=== PATIENT | male | born 1955 | race Caucasian/White ===

== ENCOUNTER 2016-12-13 13:38 | Inpatient (IN) | payer MEDICARE ==
[2016-12-13] VITALS (15 sets, daily range): BP systolic 89–154; BP diastolic 51–88; BMI 44.8
[~2016-12-13] VITALS: Ht 182.9 cm; Wt 149.7 kg
[~2016-12-13 13:38] MED LIST: BUMEX 1 MG TAB1 MG PO; BUTALB-APAP-CA1 EACH PO; CARAFATE1 G/10 ML PO; CELEXA20 MG PO; CRESTOR20 MG PO; HYDROCODONE-APA1 TAB PO; KLOR-CON M2020 MEQ PO; LANTUS INSULIN10 ML SC; LEVAQUIN500 MG PO; LYRICA150 MG PO; METOLAZONE2.5 MG PO; MORPHINE SULFAT30 MG PO; NEXIUM40 MG PO; NOVOLIN 70/30 110 ML SC; PHENYTEK200 MG PO; RESTORIL15 MG PO; ROBAXIN500 MG PO; STERAPRED DS 1210 MG PO; TERBUTALINE SULF5 MG PO; TRILEPTAL600 MG PO; ZESTRIL40 MG PO; ZOLOFT100 MG PO; [UNRECOGNIZED DRUG - OTHER] SQ
[2016-12-13 14:47] LABS: BASOPHILS 0.2 % (0.0-2.0); HEMATOCRIT 44.7 % (42.0-54.0); HEMOGLOBIN 14.9 g/dL (13.5-17.5); IMMATURE GRANULOCYTES 0.6 % (0-5); LYMPHOCYTES 12.5 % (15-50); MCH 31.5 pg (26.0-34.0); MCHC 33.3 g/dL (31.0-37.0); MCV 94.5 fL (80.0-100.0); MEAN PLATELET VOLUME 9.7 fL (7.4-10.4); MONOCYTES 4.8 % (2-11); NEUTROPHILS 80.9 % (40-80); RBC 4.73 10x6/uL (4.20-6.10); RDW 13.2 % (11.5-14.5); WBC 12.2 10x3/uL (4.8-10.8)
[2016-12-13 14:49] LABS: PLATELET COUNT 346 10x3/uL (130-400)
[2016-12-13 14:55] LABS: APTT 28.2 SECONDS (22.8-39.4); INR 1.06 (0.85-1.17); PROTIME 13.6 SECONDS (11.6-15.0)
[2016-12-13 15:00] LABS: ALKALINE PHOSPHATASE 153 U/L (46-116); ALT (SGPT) 26 U/L (10-68); BILIRUBIN - TOTAL 0.35 mg/dL (0.2-1.3); CALC OSMOLALITY 274 mosm/kg (275-300); CALCIUM 9.3 mg/dL (8.5-10.1); CARBON DIOXIDE 25.6 mmol/L (21.0-32.0); CHLORIDE - SERUM 97 mmol/L (98-107); CREATININE - SERUM 0.7 mg/dL (0.6-1.3); GLUCOSE 260 mg/dL (74-106); POTASSIUM - SERUM 4.5 mmol/L (3.5-5.1); PROTEIN - SERUM 7.8 g/dL (6.4-8.2); SODIUM 132 mmol/L (136-145); UREA NITROGEN 15 mg/dL (7-18); eGFR NON AFRICAN AMERICAN > 90 mL/min (90-120)
[2016-12-13 15:11] LABS: CKMB 3.5 U/L (0.0-3.6); CREATINE KINASE 263 UL (21-232); PRO BNP 59 pg/mL (0-125); TROPONIN-I < 0.017 ng/mL (0.000-0.060)
--- NOTE | 2016-12-13 15:12 | NUR ---
RECIEVED REPORT ON PT FROM MARITZA IN ER. WAITING TO RECIEVE PT TO UNIT.
--- NOTE | 2016-12-13 15:38 | NUR ---
PT ARRIVED TO UNIT AT 1525 VIA STRETCHER FROM ER ACCOMPANIED BY HOSPITAL STAFF. PT ABLE TO TRANSFER FROM STRETCHER TO BED BY STAND BY ASSIST WALKING. NO ACUTE DISTRESS NOTED. PT STABLE CONDITION. ALERT AND ORIENTED. WILL CONTINUE TO OBSERVE.
--- NOTE | 2016-12-13 16:16 | NUR ---
FAMILY AT BEDSIDE. UPDATE GIVEN. NO ACUTE DISTRESS NOTED. WILL CONTINUE PLAN OF CARE.
--- NOTE | 2016-12-13 18:07 | NUR ---
WATCHING TV AT THIS TIME. DENIES ANY NEEDS. NO ACUTE DISTRESS NOTED. WILL CONTINUE PLAN OF CARE.
--- NOTE | 2016-12-13 18:31 | NUR ---
SMALL INCONTINENT BOWEL MOVEMENT NOTED AT THIS TIME. HARJINDER CARE GIVEN VIA MAX ASSIST. PT TURNS SELF INDEPENDENTLY. NO ACUTE DISTRESS NOTED. WILL CONTINUE PLAN OF CARE.
--- NOTE | 2016-12-13 19:00 | NUR ---
REPORT RECIEVED, INITIAL ASSESSMENT COMPLETE, PLEASE SEE FLOW SHEETS FOR DETAILS. BED LOW AND LOCKED, CALL LIGHT IN REACH. VSS, WILL CONTINUE POC.
--- NOTE | 2016-12-13 21:00 | NUR ---
PT COMPLAINING OF SEVERE BACK PAIN, 04/23, WILL CALL DR WASSERMAN.
--- NOTE | 2016-12-13 21:15 | NUR ---
SPOKE WITH DR WASSERMAN, RECIEVED NEW ORDERS. WILL CONTINUE POC.
--- NOTE | 2016-12-13 23:00 | NUR ---
REASSESSMENT COMPLETE, PLEASE SEE FLOW SHEETS FOR DETAILS. BED LOW AND LOCKED, CALL LIGHT IN REACH. TONGUE SWELLING DECREASED. VSS, WILL CONTINUE POC.
[2016-12-14] VITALS (23 sets, daily range): BP systolic 89–184; BP diastolic 51–97
--- NOTE | 2016-12-14 01:00 | NUR ---
PT SLEEPING, NO S&S OF ACUTE DISTRESS NOTED. BED LOW AND LOCKED, CALL LIGHT IN REACH. VSS, WILL CONTINUE POC.
--- NOTE | 2016-12-14 02:57 | NUR ---
REASSESSMENT COMPLETE, PLEASE SEE FLOW SHEETS FOR DETAILS. GAVE ORDERED MORPHINE 4MG FOR PAIN WITH 4MG ZOFRAN. STATES NOSE IS DRY, ADDED HUMIDIFICATION TO O2 THERAPY. VSS, BED LOW AND LOCKED, CALL LIGHT IN REACH. WILL CONTINUE POC.
--- NOTE | 2016-12-14 05:00 | NUR ---
PT SLEEPING, DENIES NEEDS ATT, BED LOW AND LOCKED, CALL LIGHT IN REACH. NO S&S OF ACUTE DISTRESS NOTED. WILL CONTINUE POC.
[2016-12-14 05:30] LABS: BASOPHILS 0.1 % (0.0-2.0); EOSINOPHILS 0 % (0-7); HEMATOCRIT 42.2 % (42.0-54.0); HEMOGLOBIN 14.2 g/dL (13.5-17.5); IMMATURE GRANULOCYTES 0.4 % (0-5); LYMPHOCYTES 9.7 % (15-50); MCH 31.3 pg (26.0-34.0); MCHC 33.6 g/dL (31.0-37.0); MCV 93.2 fL (80.0-100.0); MEAN PLATELET VOLUME 9.6 fL (7.4-10.4); MONOCYTES 4.5 % (2-11); NEUTROPHILS 85.3 % (40-80); PLATELET COUNT 340 10x3/uL (130-400); RBC 4.53 10x6/uL (4.20-6.10); RDW 13.1 % (11.5-14.5); WBC 14.8 10x3/uL (4.8-10.8)
[2016-12-14 05:41] LABS: ERYTHROCYTE SEDIMENTATION RATE 36 mm/hr (0-20)
[2016-12-14 05:46] LABS: ALBUMIN 2.9 g/dL (3.4-5.0); ALKALINE PHOSPHATASE 151 U/L (46-116); ALT (SGPT) 24 U/L (10-68); BILIRUBIN - TOTAL 0.18 mg/dL (0.2-1.3); CALCIUM 8.7 mg/dL (8.5-10.1); CARBON DIOXIDE 24.9 mmol/L (21.0-32.0); CREATININE - SERUM 0.6 mg/dL (0.6-1.3); GLUCOSE 287 mg/dL (74-106); MAGNESIUM - SERUM 1.9 mg/dL (1.8-2.4); PHOSPHOROUS 3.2 mg/dL (2.5-4.9); PROTEIN - SERUM 6.9 g/dL (6.4-8.2); eGFR NON AFRICAN AMERICAN > 90 mL/min (90-120)
[2016-12-14 05:47] LABS: UREA NITROGEN 20 mg/dL (7-18)
[2016-12-14 05:56] LABS: CALC OSMOLALITY 278 mosm/kg (275-300); CHLORIDE - SERUM 98 mmol/L (98-107); SODIUM 133 mmol/L (136-145)
[2016-12-14 05:57] LABS: POTASSIUM - SERUM 5.2 mmol/L (3.5-5.1)
--- NOTE | 2016-12-14 12:54 | NUR ---
UP IN BED AWAKE AT THIS TIME. DENIES ANY NEEDS. NO ACUTE DISTRESS NOTED. WILL CONTINUE PLAN OF CARE.
--- NOTE | 2016-12-14 14:57 | NUR ---
LYING IN BED AT THIS TIME. NO ACUTE DISTRESS NOTED. USES CALLLIGHT FOR ASSISTANCE. WILL CONTINUE PLAN OF CARE.
--- NOTE | 2016-12-14 16:16 | NUR ---
ASSISTED TO TOILET VIA STAND BY ASSIST. CONTINENT BOWEL MOVEMENT NOTED, LARGE FORMED. ALSO CONTINENT VOID NOTED. SITTING UP IN BED NOW. NO ACUTE DISTRESS NOTED. WILL CONTINUE PLAN OF CARE.
--- NOTE | 2016-12-14 18:34 | NUR ---
RESTING IN BED AT THIS TIME. RESPIRATIONS AT STEADY AND UNLABORED RATE. NO ACUTE DISTRESS NOTED. WILL CONTINUE PLAN OF CARE.
--- NOTE | 2016-12-14 19:10 | NUR ---
ASSESSMENT COMPLETED. SEE FLOW SHEET. O2 @ 2L VIA NC, JAYSON LUNGS DIMINISHED IN THE BASES. RT HAND PIV, SITE WITHOUT REDNESS OR EDEMA WITH NS @ 75CC/HR VIA PUMP. COMPLAINING OF "BACK PAIN", WHICH IS CHRONIC FOR HIM. SR ON THE MONITOR.
--- NOTE | 2016-12-14 20:30 | NUR ---
SPOKE WITH DR FORTUNE REGARDING HOME PAIN MEDICATION REGIMINE. PAIN MEDS RESUMED PER DR FORTUNE. WILL CONT TO MONITOR.
--- NOTE | 2016-12-14 21:00 | NUR ---
NO VISITOR'S AT THIS TIME. SR ON THE MONITOR.
[2016-12-14] MEDS ORDERED: MORPHINE SULFAT30 M4 PO (21:16)
--- NOTE | 2016-12-14 23:00 | NUR ---
REASSESSMENT COMPLETED. DENIES ANY NEEDS AT THIS TIME.
[2016-12-15] VITALS (10 sets, daily range): BP systolic 114–153; BP diastolic 48–84; Ht 182.9 cm; Wt 149.7 kg
--- NOTE | 2016-12-15 01:00 | NUR ---
EYES CLOSED, RESP EVEN AND UNLABORED. SR ON THE MONITOR.
--- NOTE | 2016-12-15 03:00 | NUR ---
REASSESSMENT COMPLETED. UP TO CHAIR. WILL CONT TO MONITOR.
--- NOTE | 2016-12-15 03:57 | NUR ---
RADIOLOGY HERE FOR CXR. TOLLERATED WELL.
[2016-12-15 04:03] LABS: BASOPHILS 0.1 % (0.0-2.0); EOSINOPHILS 0.2 % (0-7); HEMATOCRIT 39.9 % (42.0-54.0); HEMOGLOBIN 13.5 g/dL (13.5-17.5); IMMATURE GRANULOCYTES 0.4 % (0-5); LYMPHOCYTES 13.4 % (15-50); MCH 31.3 pg (26.0-34.0); MCHC 33.8 g/dL (31.0-37.0); MCV 92.6 fL (80.0-100.0); MEAN PLATELET VOLUME 9.5 fL (7.4-10.4); MONOCYTES 7.3 % (2-11); NEUTROPHILS 78.6 % (40-80); PLATELET COUNT 317 10x3/uL (130-400); RBC 4.31 10x6/uL (4.20-6.10); RDW 12.9 % (11.5-14.5); WBC 11.2 10x3/uL (4.8-10.8)
[2016-12-15 04:16] LABS: CALCIUM 8.7 mg/dL (8.5-10.1); CHLORIDE - SERUM 101 mmol/L (98-107); CREATININE - SERUM 0.6 mg/dL (0.6-1.3); SODIUM 137 mmol/L (136-145); UREA NITROGEN 18 mg/dL (7-18); eGFR NON AFRICAN AMERICAN > 90 mL/min (90-120)
[2016-12-15 04:27] LABS: CALC OSMOLALITY 279 mosm/kg (275-300); GLUCOSE 172 mg/dL (74-106)
--- NOTE | 2016-12-15 10:34 | NUR ---
0800 AM ASSESMENT IS COMPLETE SEE FLOW SHEETY FOR FINDXINGS.. PT IS EASILY ROUSED ADN BREAKFAST IS SERVEDS.. PT SITTTING ON SIDE OF BED FEEDING SELF.. 0900 WITHOUT VISITORS AT THIS TIME.. 1000 OOB TO THE BSC .. LARGE STOOL AND URINE IN COMMODE.. COMPLETE AM CARE GIVEN.. PT FAIZA;ERATED WELL ASSISTED WITH CARE WHERE HE IS ABLE.. STATES HE HAS HOME HEALTH AT HOME TO ASSIST HIM.. ALSO STATES THAT HIS TOUNGE AND BREATHING IS MUCH IMPROVED AT THIS TIME ..
--- NOTE | 2016-12-15 14:30 | NUR ---
1100 DR PAZ IN TO SEE PT.. ORDER FOR DC HOME RECIEVED .. DR PAZ SPOKE WITH DR BRANTLEY IN THE UNIT RE PT.. 1130 LUNCH SERVED TO PT AND FSBS DONE.. INSULIN COVER 1200 WIHTOUT VISITOR. 1300 DISCHAGE PAPERWORK COMPLETE.. PT DRESSING AFTER CALLING FAMILY .. PIV REMOVED.. 1330 PT TO HOSPITAL ENTRANCE VIA WHEELCHAIR.. PREDNISONE DOSE PACK SENT HOME WITH PT..
--- NOTE | 2016-12-15 14:34 | NUR ---
Patient Name: SHOSHANA ECHEVARRIA Admission Status: ER Accout number: [id number] Admission Date: 12-13-2016 : 1955 Admission Diagnosis:ANGIONEUROTIC EDEMA, INITIAL ENCOUNTER Attending: CARLOS Current LOS: 2 Anticipated DC Date: 12-15-2016 Planned Disposition: Home Primary Insurance: [employer] CHOICE PPO MCR ADVANT LATE ENTRY: Discharge Planning Comments: * Is the patient Alert and Oriented? Yes 0 * How many steps to enter\exit or inside your home? NONE 0 * PCP DR. ALDRIDGE 0 * Pharmacy [place] 0 * Preadmission Environment Home with Family 0 * ADLs Partial Dependent 0 * Partial ADLs (Assistance needed) Bathing Dressing Medication Management Toileting Transfers 0 * Equipment Bedside [facility] Bed Nebulizer Other Oxygen Walker Wheelchair 0 * Other Equipment [employer] [facility] AND PORTABLE OXYGEN CANNOT REMEMBER THE NAME OF HIS MEDICAL EQUIPMENT PROVIDER 0 * List name and contact numbers for known caregivers / representatives who currently or will assist patient after discharge: FLOR ESTRELLA, SISTER, 0 * Community resources currently utilized [employer] Whe[employer] Private Duty Care 0 * Please name any agencies selected above. DAUGHTER PAID BY MEDICAID CAREGIVER, M-F, DURING DAYTIME HOURS. BROTHER IN [place] STAYS AT NIGHT TO ASSIST IF NEEDED. 0 * Additional services required to return to the preadmission environment? No 0 * Can the patient safely return to the preadmission environment? Yes 0 * Has this patient been hospitalized within the prior 30 days at any hospital? No 0 CM MET WITH PT IN ROOM TO DISCUSS DISCHARGE PLANNING AND NEEDS. PT REPORTS LIVING AT HOME DEPENDENT UPON HIS ADULT DAUGHTER AND BROTHER IN LAW FOR ASSISTANCE WITH TRANSFERS, TOILETING, BATHING, DRESSING AND MEDICATION MANAGEMENT. PT HAS ALL NEEDED MEDICAL EQUIPMENT AT HOME AND CANNOT REMEMBER THE NAME OF HIS PROVIDER. PT HAS MEALS ON WHEELS, ONCE EVERY TWO WEEKS. CM DISCUSSED AVAILABILITY OF HOME HEALTH, REHAB SERVICES AND MEDICAL EQUIPMENT. PT HAS NO SKILLED NEED OF HOME HEALTH SERVICES. PT DENIES DISCHARGE NEEDS, REPORTS HIS SISTER IS HERE TO PICK HIM UP FOR DISCHARGE HOME. IMPORTANT MESSAGE FROM MEDICARE PROVIDED AND EXPLAINED. Python Architect: Aren Garcia
== END 2016-12-15 13:45 | disposition home or self-care (01) | DRG 916 ==
LOC: OBSVTIME → D.ER 13:38 → D.OPS 13:38 → D.ICU 14:37 → OBSVTIME 14:39 → D.ICU 14:39 → D.ER 14:39 → D.ICU 21:30 → D.OPS 21:30 → D.ICU 23:45
PROVIDERS: Family Medicine; Internal Medicine Pulmonary Disease; ADMIT Surgery
DX: T78.3XXA Angioneurotic edema, initial encounter (principal); J44.1 Chronic obstructive pulmonary disease with (acute) exacerbation; J98.11 Atelectasis; T46.4X5A Adverse effect of angiotensin-converting-enzyme inhibitors, initial encounter; R06.00 Dyspnea, unspecified; E11.65 Type 2 diabetes mellitus with hyperglycemia; Z79.4 Long term (current) use of insulin; I10 Essential (primary) hypertension; E78.5 Hyperlipidemia, unspecified; J45.909 Unspecified asthma, uncomplicated; R13.10 Dysphagia, unspecified; I50.9 Heart failure, unspecified; F17.200 Nicotine dependence, unspecified, uncomplicated; K21.9 Gastro-esophageal reflux disease without esophagitis; E66.9 Obesity, unspecified

== ENCOUNTER → 2018-12-22 13:31 | Outpatient (CLI) | payer MEDICARE, MEDICAID ==
[2016-12-15 09:04] VITALS: BMI 44.7
[~2018-12-22 13:31] MED LIST changes: +MORPHINE SULFAT30 M4 PO
[2018-12-22 14:44] LABS: BASOPHILS 0.1 % (0-2); EOSINOPHILS 2.1 % (0-7); HEMATOCRIT 45.1 % (42.0-54.0); HEMOGLOBIN 15.6 g/dL (13.5-17.5); IMMATURE GRANULOCYTES 0.7 % (0-5); LYMPHOCYTES 22.2 % (15-50); MCH 32.8 pg (26.0-34.0); MCHC 34.6 g/dL (31.0-37.0); MCV 94.7 fL (80.0-100.0); MEAN PLATELET VOLUME 9.8 fL (7.4-10.4); MONOCYTES 8.4 % (2-11); NEUTROPHILS 66.5 % (40-80); PLATELET COUNT 298 10x3/uL (130-400); RBC 4.76 10x6/uL (4.20-6.10); RDW 13.5 % (11.5-14.5)
[2018-12-23 08:19] LABS: IMMUNOGLOBULIN A 313 mg/dL (61-437); IMMUNOGLOBULIN G 695 mg/dL (700-1600)
[2019-01-04 09:13] LABS: IMMUNOGLOBULIN E 61 IU/mL (6-495)
== END | disposition home or self-care (01) ==
LOC: D.LAB 08:00 → D.RT 14:00
PROVIDERS: ATTEND Internal Medicine Pulmonary Disease
DX: J44.9 Chronic obstructive pulmonary disease, unspecified (principal); J42 Unspecified chronic bronchitis; I50.32 Chronic diastolic (congestive) heart failure